=== PATIENT | female | born 1995 ===

== ENCOUNTER 2016-10-30 13:09 | Outpatient (CLI) | payer OTHER ==
[~2016-10-30] VITALS: Ht 152.4 cm; Wt 64.0 kg
[2016-10-30 13:29] VITALS: BP 119/72
[2016-10-30] MEDS ORDERED: PRENTAB9 PO (13:33)
[2016-10-30] MEDS ORDERED: SODIUM CHLORIDE 0.9% 1000 ML IV ONE (14:45)
[2016-10-30] MEDS ORDERED: NS 1,000 ML IV SCH (14:45)
[2016-10-30] MEDS ORDERED: AMPICILLIN SOD/SULBACTAM SOD 1.5 GM in D5W MINI-BAG PLUS 50 ML IV SCH (15:00)
--- NOTE | 2016-10-30 15:21 | HPE ---
DATE OF ADMISSION: HISTORY: This lady is a 20-year-old 1, para 0, last menstrual period (LMP) 03/04/2016, estimated date of delivery (EDC) 12/09/2016 at 34 and 2 weeks of gestation. She woke up this morning at 0500 hours with right flank pain and she has no history of kidney stones or previous urinary tract infection. Labs show A+, HIV negative, hepatitis negative, RPR negative, rubella immune. Varicella nonimmune. Urine had multiple sondra. Gonorrhea and chlamydia negative. 1-hour glucose was 97. On examination today the patient is lying on her right side; says it feels better to have pressure on the right side. Category one strip. Symphysis fundus height is 34, vertex presenting, appropriate. Four quadrant bowel sounds are noted. Urine shows 10/16, pH 5, cloudy with ketones and positive nitrates, positive bacteria and white cells too numerous to count. Blood pressure 119/72, respirations are 18, pulse 111, temperature 99.0. The rest the examination is unremarkable. She is normocephalic, atraumatic. Neck: Full range of motions. Pupils equal and reactive to light. Distal pulses symmetric. No evidence of deep venous thrombosis (DVT), pulmonary embolism (PE) or superficial phlebitis. No costovertebral angle (CVA) tenderness, but she does have pain lower down when you percuss in the sacral iliac area and it radiates the front. Chest is clear bilaterally at the bases. No rashes or lesions or pruritus. No arthralgia, myalgia or complaints of cough, wheezes, shortness of breath or dyspnea on exertion. No chest pain, not bleeding. Neuro complete. No incontinency, urgency. No nausea, vomiting, diarrhea or constipation. No diabetic issues. 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 PAST MEDICAL HISTORY: Unremarkable. SOCIAL HISTORY: Does not smoke or drink, does not abuse drugs. She is to . SUMMARY: In summary we have a 34+ week of gestation with possible urinary tract infection. Our plan of management is to hydrate her, antibiotics IV and give her antibiotics to go home with. She has a followup in 48 hours in the clinic.
== END 2016-10-30 16:00 | disposition home or self-care (01) ==
LOC: M LDO 13:09
PROVIDERS: ATTEND Obstetrics & Gynecology
DX: O26.893 Other specified pregnancy related conditions, third trimester (principal); R10.9 Unspecified abdominal pain; Z3A.34 34 weeks gestation of pregnancy

== ENCOUNTER 2016-12-04 09:18 | Outpatient (CLI) | payer OTHER ==
[2016-12-04] VITALS (14 sets, daily range): BP systolic 120–145; BP diastolic 74–96
[~2016-12-04 09:18] MED LIST: PRENTAB9 PO
[2016-12-04 11:52] LABS: MEAN CORPUSCULAR HGB CONC 32.9 g/dl (32.0-36.5); RED CELL DISTRIBUTION WIDTH 15.2 % (11.5-14.5); WHITE BLOOD COUNT 8.6 K/mm3 (4.0-10.0)
[2016-12-04 12:05] LABS: ALBUMIN 2.7 GM/DL (3.2-5.2); ALBUMIN/GLOBULIN RATIO 0.75 (1.00-1.93); ALKALINE PHOSPHATASE 172 U/L (45-117); ALT/SGPT 15 U/L (12-78); ANION GAP 11 MEQ/L (8-16); AST/SGOT 19 U/L (15-37); BILIRUBIN,TOTAL 0.4 MG/DL (0.2-1.0); BLOOD UREA NITROGEN 10 MG/DL (7-18); CALCIUM LEVEL 8.6 MG/DL (8.5-10.1); CARBON DIOXIDE LEVEL 20 MEQ/L (21-32); CHLORIDE LEVEL 108 MEQ/L (98-107); CREATININE FOR GFR 0.47 MG/DL (0.55-1.02); GLUCOSE, FASTING 80 MG/DL (70-105); POTASSIUM SERUM 4.3 MEQ/L (3.5-5.1); SODIUM LEVEL 139 MEQ/L (136-145); TOTAL PROTEIN 6.3 GM/DL (6.4-8.2); URIC ACID 5.1 MG/DL (2.6-6.0)
== END 2016-12-04 13:25 | disposition home or self-care (01) ==
LOC: M LDO 09:18
PROVIDERS: ATTEND Obstetrics & Gynecology
DX: O99.413 Diseases of the circulatory system complicating pregnancy, third trimester (principal); Z3A.39 39 weeks gestation of pregnancy; R03.0 Elevated blood-pressure reading, without diagnosis of hypertension

== ENCOUNTER 2016-12-05 20:02 | Inpatient (IN) | payer OTHER ==
[~2016-12-05] VITALS: Ht 152.4 cm; Wt 64.0 kg
[2016-12-05] VITALS (15 sets, daily range): BP systolic 108–139; BP diastolic 62–95
[~2016-12-05 20:02] MED LIST changes: -ACET50TA PO; -IBUP-1114 PO
[2016-12-05] MEDS ORDERED: LR 1,000 ML IV SCH (21:54)
[2016-12-05] MEDS: miSOPROStol 25 MCG 1/4 TAB (S0191) PO SCH (22:14)
[2016-12-05 22:30] LABS: MEAN CORPUSCULAR HEMOGLOBIN 25.7 pg (27.0-33.0); MEAN CORPUSCULAR HGB CONC 32.1 g/dl (32.0-36.5); RED CELL DISTRIBUTION WIDTH 15.2 % (11.5-14.5)
[2016-12-06] VITALS (28 sets, daily range): BP systolic 114–148; BP diastolic 56–99
[2016-12-06] MEDS: miSOPROStol 25 MCG 1/4 TAB (S0191) PO SCH ×2 (01:45→06:14)
[2016-12-06] MEDS ORDERED: miSOPROStol 50 MCG 1/2 TAB (S0191) PO SCH (11:00)
[2016-12-06] MEDS ORDERED: OXYTOCIN 30 UNITS IN 0.9% NaCl 500ML IV BAG (J2590) As Ordered ONE (17:14)
[2016-12-06] MEDS ORDERED: OXYTOCIN DRIP 30 UNITS in APPROPRIATE DILUENT 1 EA IV SCH (17:30)
[2016-12-06] MEDS ORDERED: LR 1,000 ML IV SCH (17:45)
[2016-12-07] VITALS (62 sets, daily range): BP systolic 114–184; BP diastolic 61–110
[2016-12-07 06:08] LABS: MEAN CORPUSCULAR HEMOGLOBIN 25.8 pg (27.0-33.0); MEAN CORPUSCULAR HGB CONC 32.5 g/dl (32.0-36.5); MEAN CORPUSCULAR VOLUME 79.4 fl (80.0-96.0); RED CELL DISTRIBUTION WIDTH 15.5 % (11.5-14.5); WHITE BLOOD COUNT 7.2 K/mm3 (4.0-10.0)
[2016-12-07 06:48] LABS: ALT/SGPT 13 U/L (12-78); AST/SGOT 19 U/L (15-37); BILIRUBIN,TOTAL 0.3 MG/DL (0.2-1.0); CREATININE FOR GFR 0.47 MG/DL (0.55-1.02); URIC ACID 4.7 MG/DL (2.6-6.0)
--- NOTE | 2016-12-07 07:40 | REPUSA ---
HISTORY: Gestational hypertension. FINDINGS: Single, live, intrauterine fetus in a vertex position. Biophysical score 6 out of 8. Amniotic fluid volume is subjectively normal. The placenta is anterior, without evidence of previa or abruption. Placenta shows grade 2 changes. Nuchal cord was not seen. S/D ratio of the umbilical cord is normal at 2.28. Anatomical survey is not performed at this time. BIOMETRY AND GROWTH heart rate: 127 bpm Amniotic fluid index: 19.1 cm (7.1-21.8) (3.2/6.3; 5.2/4.4) Biophysical profile: 03/05 Breathin Tone: 0 Movement: 2 AFV: 2 DOPPLER Umbilical - insertion PSV 42.6 cm/s EDV 16.9 cm/s S/D 2.52 (2.80 - 3.80) RI 0.60 Umbilical - Placental insertion PSV 28.5 cm/s EDV 16.3 cm/s S/D 1.75 (1.60-2.60) RI 0.43 Umbilical - Mid cord PSV 62.6 cm/s EDV 27.5 cm/s S/D 2.28 (1.60-2.60) RI 0.56 This exam is requested for well being. Single, live, intrauterine fetus in a vertex position. Biophysical score 6 out of 8. Amniotic fluid volume is subjectively normal. The placenta is anteri or, without evidence of previa or abruption. Placenta shows grade 2 changes. Nuchal cord was not se en. S/D ratio of the umbilical cord is normal at 2.28. Anatomical survey is not performed at this t guadalupe. CLINICAL SUMMARY: Single, live, intrauterine fetus in a vertex position. Biophysical score 6 out of 8. Amniotic fluid volume is subjectively normal. Biophysical score 6 out of 8.
--- NOTE | 2016-12-07 09:53 | IPNPDOC ---
Obstetrical Progress Note Date of Service The patient was seen on 12/07/16 at 09:32. Progress Note [id number] @ 929 21 yo G1 @ 39+5 by LMP with an PAT- [id number]. Here for IOL d/t GHTN. Has had multiple doses of cytotec. Pitocin started last night with FHR becoming tachy and late decelerations. Pitocin stopped and left off all night. FHR- CAT I throughout the night. S: pt is comfortable resting on right side in bed with monitors in place. Reports she is not feeling CTXs. Deneis HARDING, visual changes, n/v and RUQ pain. Spouse is at bedside. O: VS- last elevated BP- 129/94 @ 0936, prior to this 140/86 @ 0600. FHR- 125, mod variability, + accels, no decels CTX- Q 8-12 min, lasting 120 sec, palpated as mild, no decels SVE- 1/80/-2, soft/vtx/post Vidal bulb placed with 60 ml NS, to traction PMH- denies PSH- denies PREG Hx- G1, GHTN, [place]- low risk, choroid plexus cyst - resolved EFW- 2900 grams by Vamsi A: 21 yo G1 @ 39+5 by LMP with an PAT- [id number]. Here for IOL d/t GHTN. CAT I FHR, no cervical change from last exam. GBS NEG P: Vidal bulb to traction, initiate pitocin per unit protocol, stop and maintain at 6 units once reached. continue to monitor and assess. RN reassess vidal Q hour. anesthesia consult. Reassess in [address] Gonzalez @ 2152. Dr. Sumner is backup. Reviewed FHR tracing and plan to have vidal and low dose pitocin. Dr. Sumner counseled patient on plan for C-S if babe does not tolerate pitocin. VS, I&O, 24H, Fishbone Vital Signs/I&O Vital Signs Date Time Temp Pulse Resp B/P Pulse Ox O2 Delivery O2 Flow Rate FiO2 12/07/16 06:00 97.6 88 18 140/86 Laboratory Data 24H LABS Laboratory Tests 2 12/07/16 05:28: Creatinine 0.47L, Aspartate Amino Transf (AST/SGOT) 19, Alanine Aminotransferase (ALT/SGPT) 13, Lactate Dehydrogenase 163, Total Bilirubin 0.3, Uric Acid 4.7 12/07/16 06:45: Urine Random Creatinine 105.0, Urine Random Total Protein 41.7H CBC/BMP Laboratory Tests 12/07/16 05:28 Aspartate Amino Transf (AST/SGOT) 19, Alanine Aminotransferase (ALT/SGPT) 13, Lactate Dehydrogenase 163, Total Bilirubin 0.3, Uric Acid 4.7, Red Blood Count 4.02, Mean Corpuscular Volume 79.4 L, Mean Corpuscular Hemoglobin 25.8 L, Mean Corpuscular Hemoglobin Concent 32.5, Red Cell Distribution Width 15.5 H BING HOFFMAN CNM Dec 07, 2016 09:53
--- NOTE | 2016-12-07 13:45 | IPNPDOC ---
Obstetrical Progress Note Date of Service The patient was seen on 12/07/16 at 13:42. Progress Note [id number] @ 1340 21 yo G1 @ 39+5 by LMP with an PAT- [id number]. Here for IOL d/t GHTN. Has had multiple doses of cytotec. Pitocin started last night with FHR becoming tachy and late decelerations. Pitocin stopped and left off all night. FHR- CAT I throughout the night. Pitocin restarted this am. FHR remains CAT I. S: pt is uncomfortable resting on right side in bed with monitors in place. Deneis HARDING, visual changes, n/v and RUQ pain. Spouse is at bedside. O: VS- BPs remain in the mild range. Afebrile FHR- 140, mod variability, + accels, no decels CTX- Q 2 min, lasting 90-120 sec, palpated as mild-moderate, resting tone is soft SVE- deferred Rowley bulb out A: 21 yo G1 @ 39+5 by LMP with an PAT- [id number]. Here for IOL d/t GHTN. CAT I FHR, + cervical change. GBS NEG P: Continue pitocin per unit protocol. continue to monitor and assess. anesthesia consult. Reassess in 2 hours. VS, I&O, 24H, Debbie Vital Signs/I&O Vital Signs Date Time Temp Pulse Resp B/P Pulse Ox O2 Delivery O2 Flow Rate FiO2 12/07/16 06:00 97.6 88 18 140/86 Laboratory Data 24H LABS Laboratory Tests 2 12/07/16 05:28: Creatinine 0.47L, Aspartate Amino Transf (AST/SGOT) 19, Alanine Aminotransferase (ALT/SGPT) 13, Lactate Dehydrogenase 163, Total Bilirubin 0.3, Uric Acid 4.7 12/07/16 06:45: Urine Random Creatinine 105.0, Urine Random Total Protein 41.7H CBC/BMP Laboratory Tests 12/07/16 05:28 Aspartate Amino Transf (AST/SGOT) 19, Alanine Aminotransferase (ALT/SGPT) 13, Lactate Dehydrogenase 163, Total Bilirubin 0.3, Uric Acid 4.7, Red Blood Count 4.02, Mean Corpuscular Volume 79.4 L, Mean Corpuscular Hemoglobin 25.8 L, Mean Corpuscular Hemoglobin Concent 32.5, Red Cell Distribution Width 15.5 H BING HOFFMAN CNM Dec 07, 2016 13:45
[2016-12-07] MEDS ORDERED: BUTORPHANOL 2 MG/ML INJ (J0595) As Ordered ONE (15:22)
[2016-12-07] MEDS ORDERED: PROMETHAZINE INJ 25 MG/ML VIAL (J2550) As Ordered ONE (15:22)
[2016-12-07] MEDS ORDERED: BUTORPHANOL 2 MG/ML INJ (J0595) IV ONE (15:30)
[2016-12-07] MEDS ORDERED: PROMETHAZINE INJ 25 MG/ML VIAL (J2550) IV ONE (15:30)
--- NOTE | 2016-12-07 16:00 | IPNPDOC ---
Obstetrical Progress Note Date of Service The patient was seen on 12/07/16 at 15:50. Progress Note [id number] @ 1419 Called to bedside by STEVEN Hodges d/t SURYA stating he doesn't know why it hasn't been cut out of her yet and using the "Fuck" a great deal in is complaints. I went to bedside and asked what concerns or issues the patient and the FOB had. He began to curse again and STEVEN Hodges informed him he would not speak to her in this manner. FOB asked Tracie to leave the room. I requested STEVEN Gonzalez come to bedside as a witness. Asked the couple what issues or concerns they had. FOB would not answer. After several minutes informed him I couldn't address his concerns if he didn't tell me what they were. He finally stated he didn't understand why the baby wasn't out if she was sick. Discussed with patient and spouse that she and the babe are stable. Informed them this was good, but if things changed we would have a low tolerance of waiting to go to the OR for a C-S. Discussed the risks of C-S with them both and future issues that could happen after a C-S including issues in future pregnancies. They both verbalized understanding and are in agreement with plan of care. Continue IOL with pitocin. I asked FOB to go home, shower, eat and take a nap. Took his phone number and told him we would call him if the POC changed or we needed him to return for the . He verbalized understanding and agreement with this plan. VS, I&O, 24H, Fishbone Vital Signs/I&O Vital Signs Date Time Temp Pulse Resp B/P Pulse Ox O2 Delivery O2 Flow Rate FiO2 12/07/16 15:30 20 12/07/16 06:00 97.6 88 140/86 Laboratory Data 24H LABS Laboratory Tests 2 12/07/16 05:28: Creatinine 0.47L, Aspartate Amino Transf (AST/SGOT) 19, Alanine Aminotransferase (ALT/SGPT) 13, Lactate Dehydrogenase 163, Total Bilirubin 0.3, Uric Acid 4.7 12/07/16 06:45: Urine Random Creatinine 105.0, Urine Random Total Protein 41.7H CBC/BMP Laboratory Tests 12/07/16 05:28 Aspartate Amino Transf (AST/SGOT) 19, Alanine Aminotransferase (ALT/SGPT) 13, Lactate Dehydrogenase 163, Total Bilirubin 0.3, Uric Acid 4.7, Red Blood Count 4.02, Mean Corpuscular Volume 79.4 L, Mean Corpuscular Hemoglobin 25.8 L, Mean Corpuscular Hemoglobin Concent 32.5, Red Cell Distribution Width 15.5 H BING HOFFMAN Dec 07, 2016 15:59
[2016-12-07] MEDS ORDERED: LABETALOL HCL 100 MG/20 ML VIAL IV STA (17:17)
[2016-12-07] MEDS ORDERED: LABETALOL HCL 100 MG/20 ML VIAL As Ordered ONE (17:18)
[2016-12-07] MEDS ORDERED: LR 1,000 ML IV SCH (17:21)
[2016-12-07] MEDS ORDERED: MAGNESIUM *L&D* 4 GM/100 ML BAG (40MG/ML) (J3475) As Ordered ONE (17:24)
[2016-12-07] MEDS ORDERED: MAG Sulf (L&D) 4 GM/100 ML 4 GM in APPROPRIATE DILUENT 1 EA IV ONE (17:30)
[2016-12-07] MEDS ORDERED: CALCIUM GLUCONATE 1,000 MG in D5W MINI-BAG PLUS 100 ML IV PRN (17:30)
[2016-12-07] MEDS ORDERED: LABETALOL HCL 100 MG/20 ML VIAL IV ONE (17:30)
[2016-12-07] MEDS ORDERED: LR 500 ML IV ONE (17:39)
[2016-12-07] MEDS ORDERED: FENTANYL 2MCG/ML ROPIVACAINE 0.2% NACL 250 ML CADD As Ordered ONE (17:43)
[2016-12-07] MEDS: MAG Sulf (OBGYN) 20GM/500ML 20,000 MG in APPROPRIATE DILUENT 1 EA IV SCH (17:52)
--- NOTE | 2016-12-07 18:01 | ED PDOC ---
Provider Note PAULETTE Polk and Bridger accepted care of Yulissa at 0830 today. In brief, she is a 21yo with SIUP at 39w5d who is undergoing IOL for GHTN. She received multiple doses of cytotec yesterday afternoon/overnight and then pitocin was started. When titrated up to 10mu, there were late decelerations noted and pitocin was stopped. She received a BPP which was 6/8 (no tone), but reportedly the BPP was only done for 15 min rather than 30 min. When she was placed back on the monitor, she had a Category I tracing which was maintained the rest of the night with no further pitocin given. Of note, urine protein: creatinine this morning was 0.397, qualifying patient for pre-eclampsia WITHOUT severe features. She had only ever had mild range bp's and no symptoms. Around 0900 vidal bulb was placed by PAULETTE Polk and low dose pitocin re-started after we counseled Yulissa that if the fetus did not tolerate the resumption of pitocin, plan was to proceed with section. She tolerated pitocin well throughout the day with Cat I tracing. Vidal bulb recently fell out and on my check at 1740, she was 8/80/-2 with AROM performed and well tolerated. Significantly, Yulissa began to develop severe range bp's over the last hour. Complicating the picture are her pain related to contractions, as well as a reported verbal altercation her spouse had with the nurse in the patient's room in which he claimed we are not providing adequate care and his should have an immediate section. He was instructed to leave the room and go home for a while when he refused to calm down. PIH labs were re-drawn and currently pending. Patient has no symptoms of pre- eclampsia (denies headache, vision changes), but given her severe range bp's, she received 1 dose of IV labetalol and then IV Magnesium was started (4g/2g) which will be continued until 24hr after delivery. Patient now desires epidural. Will give 500ml IVF bolus prior. Will continue to keep a close eye to the FHRT and bp's. Safe to proceed. MD Wily Austin KATRINA D. MD Dec 07, 2016 18:00
[2016-12-07 18:05] LABS: ALT/SGPT 15 U/L (12-78); AST/SGOT 16 U/L (15-37); URIC ACID 4.8 MG/DL (2.6-6.0)
[2016-12-07 18:23] LABS: BILIRUBIN,TOTAL 0.6 MG/DL (0.2-1.0)
--- NOTE | 2016-12-07 19:46 | IPNPDOC ---
Text Note Date of Service The patient was seen on 12/07/16. NOTE Progress Note Patient comfortable with epidural, just having some right hip pain. Tried rotating her 20 min ago, but FHR did not tolerate. Otherwise, Cat I tracing. Receiving Magnesium with no signs of Mg toxicity. No symptoms of pre-E. Normotensive. SCE now C/C/0. Will allow 1 hour for passive descent and then begin pushing. Continue close eye to bp's and FHRT. Patient aware of plan, to include 24hr of Mg after delivery. Safe to proceed. Maureen Sumner MD [place] DOUGLAS VS,Debbie, I+O VS, Debbie, I+O Laboratory Tests 12/07/16 05:28 Aspartate Amino Transf (AST/SGOT) 19, Alanine Aminotransferase (ALT/SGPT) 13, Lactate Dehydrogenase 163, Total Bilirubin 0.3, Uric Acid 4.7, Red Blood Count 4.02, Mean Corpuscular Volume 79.4 L, Mean Corpuscular Hemoglobin 25.8 L, Mean Corpuscular Hemoglobin Concent 32.5, Red Cell Distribution Width 15.5 H 12/07/16 17:32 Aspartate Amino Transf (AST/SGOT) 16, Alanine Aminotransferase (ALT/SGPT) 15, Lactate Dehydrogenase 160, Total Bilirubin 0.6 #, Uric Acid 4.8 Vital Signs Date Time Temp Pulse Resp B/P Pulse Ox O2 Delivery O2 Flow Rate FiO2 12/07/16 18:13 78 136/88 12/07/16 15:30 20 12/07/16 14:15 97.9 MAUREEN SUMNER MD Dec 07, 2016 19:46
--- NOTE | 2016-12-07 21:38 | IPNPDOC ---
Obstetrical Progress Note Date of Service The patient was seen on 12/07/16 at 21:29. Progress Note [id number] @ 1800- Late Entry 21 yo G1 @ 39+5 by LMP with an PAT- [id number]. Here for IOL d/t GHTN. Has had multiple doses of cytotec. Pitocin started last night with FHR becoming tachy and late decelerations. Pitocin stopped and left off all night. FHR- CAT I throughout the night. Pitocin restarted this am. FHR remains CAT I. S: pt is reporting 8/10 pain resting on her side in bed with monitors in place. Deneis HARDING, visual changes, n/v and RUQ pain. Spouse is not at bedside. O: VS- Multiple severe range pressures. Afebrile FHR- 130, mod variability, + accels, repetative early and variable decels CTX- Q 2-3 min, lasting <90 sec, palpated as strong, resting tone is soft SVE- deferred Notified by STEVEN Hodges @ 1713 of several severe range BPs. Labetalol ordered 20mg IV and 4 gm Magnesium bolus @ this time. Dr. Sumner notified of severe range blood pressures. She came to bedside and performed an SVE- pt noted to be 8 cm, AROM with meconium stained fluid at this time. A: 21 yo G1 @ 39+5 by LMP with an PAT- [id number]. Pre-e with severe features. CAT II FHR, + cervical change. GBS NEG P: Continue pitocin per unit protocol. continue to monitor and assess. epidural now. Reassess in 2 hours. VS, I&O, 24H, Debbie Vital Signs/I&O Vital Signs Date Time Temp Pulse Resp B/P Pulse Ox O2 Delivery O2 Flow Rate FiO2 12/07/16 18:13 78 136/88 12/07/16 15:30 20 12/07/16 14:15 97.9 Laboratory Data 24H LABS Laboratory Tests 2 12/07/16 05:28: Creatinine 0.47L, Aspartate Amino Transf (AST/SGOT) 19, Alanine Aminotransferase (ALT/SGPT) 13, Lactate Dehydrogenase 163, Total Bilirubin 0.3, Uric Acid 4.7 12/07/16 06:45: Urine Random Creatinine 105.0, Urine Random Total Protein 41.7H 12/07/16 17:32: Creatinine 0.50L, Aspartate Amino Transf (AST/SGOT) 16, Alanine Aminotransferase (ALT/SGPT) 15, Lactate Dehydrogenase 160, Total Bilirubin 0.6# , Uric Acid 4.8 CBC/BMP Laboratory Tests 12/07/16 05:28 Aspartate Amino Transf (AST/SGOT) 19, Alanine Aminotransferase (ALT/SGPT) 13, Lactate Dehydrogenase 163, Total Bilirubin 0.3, Uric Acid 4.7, Red Blood Count 4.02, Mean Corpuscular Volume 79.4 L, Mean Corpuscular Hemoglobin 25.8 L, Mean Corpuscular Hemoglobin Concent 32.5, Red Cell Distribution Width 15.5 H 12/07/16 17:32 Aspartate Amino Transf (AST/SGOT) 16, Alanine Aminotransferase (ALT/SGPT) 15, Lactate Dehydrogenase 160, Total Bilirubin 0.6 #, Uric Acid 4.8 BING HOFFMAN CNM Dec 07, 2016 21:38
--- NOTE | 2016-12-07 21:40 | IPNPDOC ---
Obstetrical Progress Note Date of Service The patient was seen on 12/07/16 at 21:38. Progress Note [id number] @ 1945- late entry Dr. Sumner assessed patient. SVE / Plan to labor down and reassess in 1 hour. VS, I&O, 24H, Fishbone Vital Signs/I&O Vital Signs Date Time Temp Pulse Resp B/P Pulse Ox O2 Delivery O2 Flow Rate FiO2 12/07/16 18:13 78 136/88 12/07/16 15:30 20 12/07/16 14:15 97.9 Laboratory Data 24H LABS Laboratory Tests 2 12/07/16 05:28: Creatinine 0.47L, Aspartate Amino Transf (AST/SGOT) 19, Alanine Aminotransferase (ALT/SGPT) 13, Lactate Dehydrogenase 163, Total Bilirubin 0.3, Uric Acid 4.7 12/07/16 06:45: Urine Random Creatinine 105.0, Urine Random Total Protein 41.7H 12/07/16 17:32: Creatinine 0.50L, Aspartate Amino Transf (AST/SGOT) 16, Alanine Aminotransferase (ALT/SGPT) 15, Lactate Dehydrogenase 160, Total Bilirubin 0.6# , Uric Acid 4.8 CBC/BMP Laboratory Tests 12/07/16 05:28 Aspartate Amino Transf (AST/SGOT) 19, Alanine Aminotransferase (ALT/SGPT) 13, Lactate Dehydrogenase 163, Total Bilirubin 0.3, Uric Acid 4.7, Red Blood Count 4.02, Mean Corpuscular Volume 79.4 L, Mean Corpuscular Hemoglobin 25.8 L, Mean Corpuscular Hemoglobin Concent 32.5, Red Cell Distribution Width 15.5 H 12/07/16 17:32 Aspartate Amino Transf (AST/SGOT) 16, Alanine Aminotransferase (ALT/SGPT) 15, Lactate Dehydrogenase 160, Total Bilirubin 0.6 #, Uric Acid 4.8 BING HOFFMAN CNM Dec 07, 2016 21:40
--- NOTE | 2016-12-07 23:12 | DNPDOC ---
Delivery Note Delivery Note DATE OF DELIVERY: Dec 07, 2016 at 2230 PREDELIVERY DIAGNOSIS: 39w5d gestation and labor. POST DELIVERY DIAGNOSIS: Delivered. PROCEDURE: Vacuum assisted vaginal delivery SLIDE FORMING MACHINE OPERATOR: Dr. Maureen Sumner MD ANESTHESIA: epidural ESTIMATED BLOOD LOSS: 300 mL FINDINGS: 7 pound 7 ounce male infant, Score 9/9 DELIVERY SUMMARY: Yulissa is a 21yo G1 now P1001 who was admitted to L&D for iol secondary to GHTN and developed pre-eclampsia with severe features by severe range bp's, was started on IV Magnesium. Light/moderate meconium present. She had an uncomplicated low vacuum assisted vaginal delivery of a viable male at 2330 on 08 December 2015 at 39w5d. She progressed to C/C/+2 and was noted to have decelerations to the 70's. Due to NRFHT, decision was made for vacuum assisted vaginal delivery. Bladder was drained using a straight catheter, anesthesia was found to be adequate, position confirmed OA, and electric refrigerator preparer Dr. Naqvi present for delivery. Suction cup was applied at the flexion point along the midline sagittal suture. Appropriate suction was applied. With 2 sets of push/pulls and 2 pop-offs, head was delivered OA , restituted SANDY. No nuchal cord. Right anterior shoulder delivered followed by posterior shoulder and corpus. Cord clamped x2 and cut by this provider. Spontaneous cry noted. Baby immediately taken to warmer and given to electric refrigerator preparer. Apgars 9/9, weight 3384g. Cord blood obtained due to maternal blood type of O pos and blood gas (venous) obtained secondary to VAVD. With gentle downward guidance and suprapubic pressure, placenta delivered spontaneously and intact. Fundal massage until both uterine fundus and lower uterine segment firm. Pitocin 30 units IV bolus administered. Inspection of perineum and vaginal wall revealed superficial sidewall lacerations bilaterally closed with 4.0 vicryl suture with good hemostasis. Mom and in stable condition. Mom will be kept on L&D for 12-24 hours for Magnesium Sulfate therapy for maternal neuroprotection. Inspection of revealed no scalp or facial bruising, lacerations, or edema, and full range of motion of all extremities present. Dr. Maureen Sumner MD [place] L[place] MD Dec 07, 2016 23:12
[2016-12-07] MEDS ORDERED: OXYTOCIN DRIP 30 UNITS in APPROPRIATE DILUENT 1 EA IV SCH (23:13)
[2016-12-07] MEDS ORDERED: ANUSOL HC CREAM 30GM TOP PRN (23:15)
[2016-12-07] MEDS ORDERED: IBUPROFEN 800 MG TAB PO PRN (23:15)
[2016-12-07] MEDS ORDERED: RHOGAM 300 MCG (1500 IU) INJ (J2790) IM SCH (23:15)
[2016-12-07] MEDS ORDERED: MEASLES,MUMPS,RUBELLA VACCINE INJ (MMR-II) (90707) SC SCH (23:15)
[2016-12-07] MEDS ORDERED: miSOPROStol 200 MCG TAB (S0191) PR ONE (23:15)
[2016-12-07] MEDS ORDERED: ACETAMINOPHEN 500 MG TAB PO PRN (23:15)
[2016-12-07 23:24] LABS: CORD GAS ABE V -7.3; CORD GAS HCO3 V 19.7 MEQ/L; CORD GAS O2 SAT V 54.8 %; CORD GAS PCO2 V 44.8 mmHg; CORD GAS PH V 7.261 UNITS; CORD GAS PO2 V 26.9 mmHg; CORD GAS SBC V 17.7 MEQ/L; CORD GAS TCO2 V 21.1 MEQ/L
[2016-12-08] VITALS (41 sets, daily range): BP systolic 110–158; BP diastolic 60–100
[2016-12-08 06:37] LABS: MEAN CORPUSCULAR HEMOGLOBIN 26.3 pg (27.0-33.0); MEAN CORPUSCULAR HGB CONC 33.1 g/dl (32.0-36.5); MEAN CORPUSCULAR VOLUME 79.4 fl (80.0-96.0); RED CELL DISTRIBUTION WIDTH 15.8 % (11.5-14.5); WHITE BLOOD COUNT 17.8 K/mm3 (4.0-10.0)
--- NOTE | 2016-12-08 06:41 | IPNPDOC ---
Obstetrical Progress Note Date of Service The patient was seen on 12/08/16 at 06:26. Progress Note BRIEF SUMMARY OF LABOR AND DELIVERY: 21 yo s/p VAVD on 07DEC2016 @ 2230 with pre-e with severe features(Magnesium started @ 1729 on 07DEC2016). Male infant 7 lbs 7 oz, 3384 grams. LABS AND OTHER LABS ORDERED THIS ADMISSION: Blood type: A positive, SUBJECTIVE: Patient reports , denies pain, desires Mirena for control, BM during delivery. OBJECTIVE: PHYSICAL EXAMINATION: VITAL SIGNS: BPs normal with last elevated @ 0210 of 158/89, afebrile CARDIOVASCULAR: RRR, no m/r/g LUNGS: CTA BREAST EXAMINATION: no edema FUNDUS: Firm @ U-2, non-tender to massage PERINEUM: edematous, moderate lochia EXTREMITIES: Bilateral lower legs without edema, +2 DTRs, no clonus SCDs on bilat LE Intake: 375 ml IV since delivery; 120 ml PO since delivery Output: 3100 ml of urine via vidal since delivery ASSESSMENT: 21 yo s/p VAVD with vaginal laceration and repair with pre- e with severe features on magnesium. Doing well PP Day #1. PLAN: Remain on L&D with Magnesium IV. Stop Magnesium @ 1729 on [id number]. Transfer to [facility] at this time. Continue I&O Continue to assist with BFing; digital media sales consultant to see patient today control plans: Darci Report to on-coming provider @ 5307. VS, I&O, 24H, Debbie Vital Signs/I&O Vital Signs Date Time Temp Pulse Resp B/P Pulse Ox O2 Delivery O2 Flow Rate FiO2 12/08/16 04:55 102 128/65 12/08/16 04:25 18 12/08/16 02:55 99.3 I&O- Last 24 Hours up to 6 AM 12/08/16 05:59 Intake Total 2800 ml Output Total 3900 ml Balance -1100 ml Laboratory Data 24H LABS Laboratory Tests 2 12/07/16 06:45: Urine Random Creatinine 105.0, Urine Random Total Protein 41.7H 12/07/16 17:32: Creatinine 0.50L, Aspartate Amino Transf (AST/SGOT) 16, Alanine Aminotransferase (ALT/SGPT) 15, Lactate Dehydrogenase 160, Total Bilirubin 0.6# , Uric Acid 4.8 12/07/16 22:53: Cord Venous Base Excess (Actual) -7.3, Cord Venous Base Excess (Standard) 17.7, Cord Venous Blood HCO3 19.7, Cord Venous Blood Oxygen Saturation 54.8, Cord Venous Blood PCO2 44.8, Cord Venous Blood PO2 26.9, Cord Venous Blood Total CO2 21.1, Cord Venous Blood pH 7.261 CBC/BMP Laboratory Tests 12/07/16 17:32 Aspartate Amino Transf (AST/SGOT) 16, Alanine Aminotransferase (ALT/SGPT) 15, Lactate Dehydrogenase 160, Total Bilirubin 0.6 #, Uric Acid 4.8 BING HOFFMAN Dec 08, 2016 06:41
[2016-12-08] MEDS: PRENATAL VITAMIN TAB PO SCH (09:00)
[2016-12-08] MEDS: DOCUSATE SODIUM 100 MG CAP PO SCH (09:00)
[2016-12-08] MEDS: MAG Sulf (OBGYN) 20GM/500ML 20,000 MG in APPROPRIATE DILUENT 1 EA IV SCH ×2 (12:09→14:00)
[2016-12-09 02:29] VITALS: BP 142/90
[2016-12-09 06:29] VITALS: BP 132/77
[2016-12-09 06:50] LABS: MEAN CORPUSCULAR HEMOGLOBIN 25.4 pg (27.0-33.0); MEAN CORPUSCULAR VOLUME 79.4 fl (80.0-96.0); RED CELL DISTRIBUTION WIDTH 15.7 % (11.5-14.5); WHITE BLOOD COUNT 11.6 K/mm3 (4.0-10.0)
[2016-12-09] MEDS: DOCUSATE SODIUM 100 MG CAP PO SCH ×2 (07:52→20:45)
[2016-12-09] MEDS: PRENATAL VITAMIN TAB PO SCH (07:53)
[2016-12-09 10:00] VITALS: BP 121/78
[2016-12-09] MEDS: MAG Sulf (OBGYN) 20GM/500ML 20,000 MG in APPROPRIATE DILUENT 1 EA IV SCH ×3 (10:00)
--- NOTE | 2016-12-09 11:29 | IPN ---
DATE: 12/09/2016 This lady is a 2 now para 1 who was admitted for induction of labor at 39 weeks for gestational hypertension. She had throughout her course several lots of Cytotec, Pitocin, a Rowley bulb. She eventually got fully dilated and had a vacuum-assisted delivery of a live male , 7 pounds 7 ounces, 3384 grams, scores of 9 and 9 at 1 and 5 minutes respectively. Venous pH was 7.26, base excess is -7.3. Arterial pH was not available. Her admitting hemoglobin was 11.3, hematocrit 35.1 and platelets are 248. day #3 her hemoglobin is 9.3, hematocrit 28.9, and platelets are 237. Her chemistry on induction indicated that she had uric acid of 4.7 and on the following 24 hours the uric acid was 4.8. Her protein creatinine ratio had gone from 0.02 to 0.04. She was placed on magnesium sulfate for neuro protection because of her blood pressure and her vital signs remained stable. She had one outlying blood pressure on 12/09/2016 at 2:30 in the morning when it was 142/90. The rest of blood pressures range from 132/77 to 139/90 to 133/91 to 137/90. Presently, her blood pressure is 132/77, respirations are 18, pulse is 132 and temperature is 99.2. She is neuro complete. She is normocephalic, atraumatic. Neck has full range of motion. Pupils equal and reactive to light. Distal pulses are symmetric. No evidence of DVT, PE or superficial phlebitis. Uterus is two below. Four quadrant bowel sounds are noted. The rest of the abdominal examination is unremarkable. Reflexes are normal. She has no rashes or lesions or pruritus. No arthralgia or myalgia. No complaints of cough, wheezes, shortness of breath or dyspnea on exertion. She is not bleeding. Neuro complete. No incontinence, urgency or frequency. No nausea, vomiting, diarrhea or constipation. Her perineum is healing. She had a bilateral tears, which were oversewn with #4-0 Vicryl. Her past history is unremarkable. She does not smoke or drink or abuse drugs. She is . There is no domestic violence; however, the is demonstrated aberrant type behavior while here at the hospital. In summary, we have a 21-year-old with gestational hypertension, had 24 hours of normal prophylaxis, vacuum-assisted delivery of a live male .
[2016-12-09 14:00] VITALS: BP 123/75
[2016-12-09 18:00] VITALS: BP 140/77
[2016-12-09 22:00] VITALS: BP 138/86
[2016-12-10 02:00] VITALS: BP 128/91
[2016-12-10 05:57] VITALS: BP 139/101
[2016-12-10 07:54] LABS: MEAN CORPUSCULAR HEMOGLOBIN 25.5 pg (27.0-33.0); MEAN CORPUSCULAR HGB CONC 31.7 g/dl (32.0-36.5); MEAN CORPUSCULAR VOLUME 80.6 fl (80.0-96.0); RED CELL DISTRIBUTION WIDTH 15.4 % (11.5-14.5); WHITE BLOOD COUNT 12.2 K/mm3 (4.0-10.0)
[2016-12-10] MEDS: PRENATAL VITAMIN TAB PO SCH (08:06)
[2016-12-10] MEDS: DOCUSATE SODIUM 100 MG CAP PO SCH (08:06)
[2016-12-10 10:00] VITALS: BP 137/78
--- NOTE | 2016-12-10 11:05 | IPNPDOC ---
Text Note Date of Service The patient was seen on 12/10/16. NOTE PPD 3 Yulissa is a 21yo doing well on PPD 3 s/p uncomplicated VAVD performed for NRFHT. She underwent iol for GHTN, but developed severe pre- eclampsia based on severe range bp's during labor and was started on IV Magnesium for maternal neuro protection, which was continued for 24 hours after her delivery. She is . Baby currently under bili light. Lochia normal, spontaneously voiding and ambulating without difficulty. Tolerating regular diet. Denies f/c/n/v/SOB/CP/HARDING/vision changes/abdominal pain. Since discontinuation of Mg has had no severe range bp's- only very mild range to normotensive bp's, afebrile Exam: General: WDWN, NAD, resting comfortably Cardiac: S1S2 present, no murmur Lungs: CTAB without wheeze/crackles Abdomen: soft, NTTP, fundus firm u-2cm Extremities: no tenderness of calves bilaterally Assessment: Yulissa is a 21yo doing well on PPD 3 s/p uncomplicated VAVD performed for NRFHT. She underwent iol for GHTN, but developed severe pre- eclampsia based on severe range bp's during labor and was started on IV Magnesium for maternal neuro protection, which was continued for 24 hours after her delivery. Meeting all milestones. No signs/symptoms of pre-eclampsia. No e/ o infection, hemodynamically stable. Plan: -discharge to home with routine follow-up in 1 week for bp check and then for routine 6wk PP visit -home meds already given from clinic stock -desires IUD for contraception -discussed return precautions for worsening pre-E and infection Dr. Maureen Sumner MD Belt DOUGLAS VS,Debbie, I+O VS, Catiee, I+O Laboratory Tests 12/10/16 06:27 Red Blood Count 3.78 L, Mean Corpuscular Volume 80.6, Mean Corpuscular Hemoglobin 25.5 L, Mean Corpuscular Hemoglobin Concent 31.7 L, Red Cell Distribution Width 15.4 H Vital Signs Date Time Temp Pulse Resp B/P Pulse Ox O2 Delivery O2 Flow Rate FiO2 12/10/16 10:00 98.2 92 18 137/78 3/13/17 18:00 Room Air MAUREEN SUMNER MD Dec 10, 2016 11:05
--- NOTE | 2016-12-10 11:12 | DS.PDOC ---
Discharge Summary General Date of Admission Dec 05, 2016 at 21:50 Date of Discharge Dec 10, 2016 Attending Physician: RAVI SUMNER MD Discharge Summary PROCEDURES PERFORMED DURING STAY: Vacuum assisted vaginal delivery ADMITTING DIAGNOSES: 1. induction of labor at 39wk gestation for gestational hypertension DISCHARGE DIAGNOSES: 1. induction of labor at 39wk gestation for gestational hypertension 2. development of severe pre-eclampsia during labor with receipt of IV Magnesium Sulfate COMPLICATIONS/CHIEF COMPLAINT: Induction of labor for gestational hypertension HISTORY OF PRESENT ILLNESS/HOSPITAL COURSE: Yulissa is a 21yo doing well on post day 3 s/p uncomplicated vacuum assisted vaginal delivery performed for nonreassuring heart tracing. She underwent induction of labor for gestational hypertension, but developed severe pre-eclampsia based on severe range blood pressures during labor and was started on IV Magnesium for maternal neuro protection, which was continued for 24 hours after her delivery. Meeting all milestones. No signs/symptoms of pre-eclampsia. No evidence of infection, hemodynamically stable. Ready for discharge DISCHARGE MEDICATIONS: tylenol, motrin, lanolin, colace ALLERGIES: Please see below. PHYSICAL EXAMINATION ON DISCHARGE: Vitals: Since discontinuation of magnesium sulfate, she has had no severe range bp's- only very mild range to normotensive bp's, afebrile Exam: General: WDWN, NAD, resting comfortably Cardiac: S1S2 present, no murmur Lungs: CTAB without wheeze/crackles Abdomen: soft, NTTP, fundus firm u-2cm Extremities: no tenderness of calves bilaterally LABORATORY DATA: Please see below. ACTIVITY: As tolerated, vaginal rest for 6 weeks DIET: regular DISCHARGE PLAN: discharge to home today DISPOSITION: home DISCHARGE INSTRUCTIONS: 1. vaginal rest for 6 weeks 2. discussed return precautions to include unremitting headache/vision changes, fevers/chills, foul smelling lochia or abdominal pain/breast pain, vaginal bleeding > 1 pad per hour ITEMS TO FOLLOWUP ON ON OUTPATIENT: bp check in 1 week DISCHARGE CONDITION: Stable TIME SPENT ON DISCHARGE: Greater than [address] [facility] Sign[facility]/I&Os Vital Signs Date Time Temp Pulse Resp B/P Pulse Ox O2 Delivery O2 Flow Rate FiO2 12/10/16 10:00 98.2 92 18 137/78 12/08/16 18:00 Room Air Laboratory Data CBC/BMP Laboratory Tests 12/10/16 06:27 Red Blood Count 3.78 L, Mean Corpuscular Volume 80.6, Mean Corpuscular Hemoglobin 25.5 L, Mean Corpuscular Hemoglobin Concent 31.7 L, Red Cell Distribution Width 15.4 H Discharge Medications Scheduled Multivitamins/ ( 27-0.8 mg) 1 Tab Tab 1 TAB PO DAILY (Reported ) Allergies Coded Allergies: No Known Allergies (Unverified , 10/30/16) RAVI SUMNER MD Dec 10, 2016 11:12
[2016-12-10] MEDS ORDERED: IBUP-1114 PO (11:18)
[2016-12-10] MEDS ORDERED: ACET50TA PO (11:18)
== END 2016-12-10 14:55 | disposition home or self-care (01) | DRG 775 ==
LOC: M LDO 20:02 → M LDI 21:50 → M OBS 12-08 22:50
PROVIDERS: ADMIT Obstetrics & Gynecology; ATTEND Obstetrics & Gynecology
PROC: 3E0P7GC Introduction of Other Therapeutic Substance into Female Reproductive, Via Natural or Artificial Opening (ICD-10-PCS; 2016-12-05)
PROC: 10D07Z6 Extraction of Products of Conception, Vacuum, Via Natural or Artificial Opening (ICD-10-PCS; principal; 2016-12-07)
DX: O14.14 Severe pre-eclampsia complicating childbirth (principal); Z37.0 Single live birth; Z3A.39 39 weeks gestation of pregnancy; O76 Abnormality in fetal heart rate and rhythm complicating labor and delivery

== ENCOUNTER → 2016-12-05 | Outpatient (REF) | payer OTHER ==
[~2016-12-05] MED LIST changes: +ACET50TA PO; +IBUP-1114 PO
== END ==
LOC: M LAB REF 14:05
PROVIDERS: ATTEND Obstetrics & Gynecology
DX: R03.0 Elevated blood-pressure reading, without diagnosis of hypertension (principal)